=== PATIENT | male | born 1965 | race Caucasian/White ===

== ENCOUNTER 2016-07-17 15:12 | Emergency (ER) | payer MEDICARE ==
[2016-07-17 16:39] LABS: HEMOGLOBIN 15.8 gm/dl (14.0-17.5); RED BLOOD COUNT 5.17 M/UL (4.20-5.50); WHITE BLOOD COUNT 5.5 K/UL (4.5-11.0)
[2016-07-17 17:02] LABS: BUN/CREATININE RATIO 17 (0-10)
== END 2016-07-17 20:33 | disposition home or self-care (01) ==
LOC: ER1 15:12
PROVIDERS: Physician Assistant
DX: R10.11 Right upper quadrant pain (principal); R11.0 Nausea; I25.10 Atherosclerotic heart disease of native coronary artery without angina pectoris; E11.9 Type 2 diabetes mellitus without complications; I10 Essential (primary) hypertension; E78.5 Hyperlipidemia, unspecified; Z95.5 Presence of coronary angioplasty implant and graft; Z90.49 Acquired absence of other specified parts of digestive tract; Z79.84 Long term (current) use of oral hypoglycemic drugs; Z79.899 Other long term (current) drug therapy
CPT/HCPCS: 36415; 80053; 81001; 83690; 85025; 93005; 96374; 96375; 96376; 99284; J2270; J2405; J7050; Q9962

== ENCOUNTER → 2020-06-15 | Outpatient (CLI) | payer MEDICARE, SELFPAY ==
[~2020-06-15] MED LIST: ADIPEX-P37.5 MG PO; ASPIRIN EC81 MG PO; ATORVASTATIN CA20 MG PO; AUGMENTIN 875-1 EACH PO; BRILINTA 90 MG90 MG PO; DITROPAN XL 5 MG5 MG PO; ECOTRIN81 MG PO; ELIQUIS2.5 MG PO; ENDOCET 10-3251 EACH PO; FISH OIL 1,0001 EAC5 PO; IBUPROFEN600 MG PO; INVOKANA300 MG PO; JARDIANCE25 MG PO; LANTUS100 UNIT/1 SC; LIPITOR TAB 2020 MG PO; LOPRESSOR 25 MG25 MG PO; MEDROL DOSEPAK 24 MG PO; MELATONIN10 M2 PO; NAPROXEN 250 M250 MG PO; NEURONTIN 300300 MG PO; NEURONTIN 400400 MG PO; NEURONTIN600 MG PO; NITROGLYCERIN0.4 MG SL; NORCO 10-325 T1 EACH PO; ORBACTIV400 MG IV; PRINIVIL5 MG PO; TRICOR 145 MG145 MG PO; VICTOZA 3-0.6 MG/0.1 SQ; XARELTO10 MG PO
[2020-06-15 09:23] LABS: HEMOGLOBIN 16.2 gm/dl (14.0-17.5); RED BLOOD COUNT 5.17 M/UL (4.20-5.50)
[2020-06-15 09:43] LABS: BUN/CREATININE RATIO 26 (0-10)
== END ==
LOC: EDSTATUS 08:00 → OPSV2 08:00
PROVIDERS: Orthopaedic Surgery
DX: Z01.818 Encounter for other preprocedural examination (principal); M16.12 Unilateral primary osteoarthritis, left hip; I44.0 Atrioventricular block, first degree
CPT/HCPCS: 71046; 80048; 81001; 83036; 85025; 87081; 93005

== ENCOUNTER → 2020-06-27 | Outpatient (CLI) | payer MEDICARE, SELFPAY, OTHER ==
[2020-06-27 15:22] LABS: BUN/CREATININE RATIO 22 (0-10)
== END ==
LOC: LAB 13:29
PROVIDERS: Orthopaedic Surgery
DX: Z01.812 Encounter for preprocedural laboratory examination (principal)
CPT/HCPCS: 80048; 86850; 86900; 86901

== ENCOUNTER 2020-06-28 06:51 | Day surgery (SDC) | payer MEDICARE, OTHER ==
[~2020-06-28] VITALS: Ht 185.4 cm; Wt 138.8 kg
[~2020-06-28 06:51] MED LIST changes: -DITROPAN XL 5 MG5 MG PO; -ELIQUIS2.5 MG PO; -ENDOCET 10-3251 EACH PO; -MEDROL DOSEPAK 24 MG PO; -XARELTO10 MG PO
[2020-06-28] MEDS ORDERED: DITROPAN XL 5 MG5 MG PO (07:55)
[2020-06-28] MEDS ORDERED: ELIQUIS2.5 MG PO (08:22)
[2020-06-28] MEDS ORDERED: ENDOCET 10-3251 EACH PO (08:22)
--- NOTE | 2020-06-28 19:57 | NUR ---
attempted to apply tele monitor, patient said no; instructed on tele use and need for but patient still will not allow us to place on him.
[2020-06-29 05:28] LABS: HEMOGLOBIN 12.6 gm/dl (14.0-17.5); RED BLOOD COUNT 4.2 M/UL (4.20-5.50); WHITE BLOOD COUNT 7.2 K/UL (4.5-11.0)
[2020-06-29 05:45] LABS: BUN/CREATININE RATIO 21 (0-10)
--- NOTE | 2020-06-29 13:59 | NUR ---
REPORT CALLED TO EMEKA AT [facility]
== END 2020-06-29 15:07 | disposition home health service (06) ==
LOC: ZOBSOF 06:51 → OR 06:51 → UNDOADMIN 06:51 → M/S 06:51 → EDSTATUS 08:15 → M/S 12:38 → ZOBSOF 12:38 → M/S 06-29 15:07 → OR 06-29 15:07
PROVIDERS: Orthopaedic Surgery
PROC: 3E0T3BZ Introduction of Anesthetic Agent into Peripheral Nerves and Plexi, Percutaneous Approach (ICD-10-PCS; 2020-06-28)
PROC: 0SRB0JA Replacement of Left Hip Joint with Synthetic Substitute, Uncemented, Open Approach (ICD-10-PCS; principal; 2020-06-28 08:15)
DX: M16.12 Unilateral primary osteoarthritis, left hip (principal); G89.18 Other acute postprocedural pain; E11.9 Type 2 diabetes mellitus without complications; I10 Essential (primary) hypertension; E78.5 Hyperlipidemia, unspecified; K21.9 Gastro-esophageal reflux disease without esophagitis; B36.8 Other specified superficial mycoses; I25.2 Old myocardial infarction; G47.33 Obstructive sleep apnea (adult) (pediatric); K76.0 Fatty (change of) liver, not elsewhere classified; D69.6 Thrombocytopenia, unspecified; I25.10 Atherosclerotic heart disease of native coronary artery without angina pectoris; E66.01 Morbid (severe) obesity due to excess calories; Z68.41 Body mass index [BMI] 40.0-44.9, adult; Z20.822 Contact with and (suspected) exposure to COVID-19; Z96.641 Presence of right artificial hip joint; Z79.01 Long term (current) use of anticoagulants; Z79.82 Long term (current) use of aspirin; Z79.4 Long term (current) use of insulin; Z79.899 Other long term (current) drug therapy; Z95.5 Presence of coronary angioplasty implant and graft; Z91.19 Patient's noncompliance with other medical treatment and regimen
CPT/HCPCS: 36415; 73501; 73502; 76000; 80048; 82962; 85027; 97110-GP-CQ; 97116-GP-CQ; 97162; 97165; 97530; 97535; C1776; J0690; J1885; J2001; J2250; J2270; J2370; J2405; J2550; J2704; J2710; J2795; J3010; J3370; J7030; J7050; J7120

== ENCOUNTER 2020-07-10 09:36 | Emergency (ER) | payer MEDICARE, SELFPAY ==
[~2020-07-10 09:36] MED LIST changes: +DITROPAN XL 5 MG5 MG PO; +ELIQUIS2.5 MG PO; +ENDOCET 10-3251 EACH PO
[2020-07-10] MEDS ORDERED: MEDROL DOSEPAK 24 MG PO (11:07)
== END 2020-07-10 11:45 | disposition home or self-care (01) ==
LOC: ER1 09:36
DX: R21 Rash and other nonspecific skin eruption (principal); E11.9 Type 2 diabetes mellitus without complications; E78.5 Hyperlipidemia, unspecified; I10 Essential (primary) hypertension
CPT/HCPCS: 96374; 96375; 99282; J1200; J1885; J2930

== ENCOUNTER 2020-07-12 12:50 | Emergency (ER) | payer MEDICARE, SELFPAY ==
[~2020-07-12] VITALS: Ht 185.4 cm; Wt 136.1 kg
[~2020-07-12 12:50] MED LIST changes: +MEDROL DOSEPAK 24 MG PO
[2020-07-12] MEDS ORDERED: XARELTO10 MG PO (16:09)
== END 2020-07-12 17:38 | disposition home or self-care (01) ==
LOC: ER1 12:50
DX: L50.0 Allergic urticaria (principal); T38.0X5A Adverse effect of glucocorticoids and synthetic analogues, initial encounter; E11.9 Type 2 diabetes mellitus without complications
CPT/HCPCS: 96374; 96375; 96376; 99283; J1100; J1200

== ENCOUNTER 2021-01-25 10:14 | Emergency (ER) | payer MEDICARE, OTHER ==
[~2021-01-25 10:14] MED LIST changes: +XARELTO10 MG PO
[2021-01-25 11:59] LABS: HEMOGLOBIN 15.4 gm/dl (14.0-17.5); RED BLOOD COUNT 4.98 M/UL (4.20-5.50); WHITE BLOOD COUNT 5.1 K/UL (4.5-11.0)
[2021-01-25 12:17] LABS: BUN/CREATININE RATIO 19 (0-10)
[2021-01-25] MEDS ORDERED: IBUPROFEN600 MG PO (15:24)
== END 2021-01-25 15:50 | disposition home or self-care (01) ==
LOC: ER1 10:14
PROVIDERS: Emergency Medicine
DX: N43.3 Hydrocele, unspecified (principal); E11.9 Type 2 diabetes mellitus without complications; I25.10 Atherosclerotic heart disease of native coronary artery without angina pectoris; Z95.5 Presence of coronary angioplasty implant and graft
CPT/HCPCS: 76870; 80053; 81001; 85025; 87086; 96374; 96375; 99284; J2270; J2405